=== PATIENT | male | born 1960 | race Caucasian/White ===

== ENCOUNTER 2016-09-07 10:36 | Emergency (ER) | payer MEDICAID ==
[~2016-09-07] VITALS: Ht 177.8 cm; Wt 89.8 kg
[2016-09-07 11:26] VITALS: BP 131/94
== END 2016-09-07 12:15 | disposition home or self-care (01) ==
LOC: ED 10:36
DX: S20.219A Contusion of unspecified front wall of thorax, initial encounter (principal); V49.9XXA Car occupant (driver) (passenger) injured in unspecified traffic accident, initial encounter; Y93.89 Activity, other specified; Y99.8 Other external cause status; Y92.89 Other specified places as the place of occurrence of the external cause
CPT/HCPCS: J1885; Q0092